=== PATIENT | female | born 1990 | race Caucasian/White ===

== ENCOUNTER 2018-12-12 13:23 | Emergency (ER) | payer SELFPAY ==
[2018-12-12] MEDS ORDERED: clonazePAM 0.5 MG TABLET PO ONE (13:41)
--- NOTE | 2018-12-12 13:44 | ED Physician Documentation ---
General Adult - HISTORIAN Historian: patient - HPI Stated Complaint: agitation Chief Complaint: General Adult Additional Information: Patient presents to ED with complaints of agitation and fleeting thoughts since he was started on amitriptyline two days ago. He denies any suicidal or homicidal thoughts. He was started on amitriptyline as a sleep aid. Onset: days ago (2) Timing: still present Severity: moderate - ROS CONST: no problems EYES/ENT: none CVS/RESP: none GI/: none MS/SKIN/LYMPH: none NEURO/PSYCH: denies: headache, dizziness - PAST HX Past History: other (anxiety) Other History: none Surgeries/Procedures: none Allergies/Adverse Reactions: Allergies Allergy/AdvReac Type Severity Reaction Status Date / Time amitriptyline [From Elavil] Allergy Verified 12/12/18 13:40 suprex AdvReac Rash Uncoded 12/12/18 13:40 Home Medications: Ambulatory Orders Medication Instructions Recorded NK 12/12/18 - SOCIAL HX Smoking History: non-smoker Alcohol Use: none Drug Use: none - FAMILY HX Family History: No - REVIEWED ASSESSMENTS Nursing Assessment Reviewed: Yes Vitals Reviewed: Yes ED Results Lab/Radiology - Orders Orders: ED Orders Category Date Time Status clonazePAM [KlonoPIN] Med 12/12/18 13:41 Once 1 mg PO NOW ONE General Adult Physical Exam - PHYSICAL EXAM GENERAL APPEARANCE: no distress EENT: CARMELA NECK: supple RESPIRATORY: no resp distress CVS: reg rate & rhythm, heart sounds normal ABDOMEN: soft, normal bowel sounds BACK: normal inspection, no CVA tenderness SKIN: warm/dry, normal color EXTREMITIES: non-tender NEURO: oriented X3, mood/affect nml Discharge Clincal Impression: Agitation Medication adverse effect Qualifiers: Encounter type: initial encounter Qualified Code(s): T50.905A - Adverse effect of unspecified drugs, medicaments and biological substances, initial encounter Referrals: Primary Doctor,No [Primary Care Provider] - 2 Days Additional Instructions: 1. STOP Amitriptyline. List this drug as an allergy 2. Take Clonazepam every 8 hours as needed for agitation/anxiety 3. Follow up with PCP as soon as possible. Discuss different medication for insomnia 4. Return to the ER for new or worsening symptoms Condition: Stable Disposition: 01 HOME, SELF-CARE Decision to Admit: NO Date of Decison to Admit: 12/12/18 Decision Time: 14:40
[2018-12-12 14:54] VITALS: BP 140/82
== END 2018-12-12 14:50 | disposition home or self-care (01) ==
LOC: ED 13:23
DX: R45.1 Restlessness and agitation (principal); T43.015A Adverse effect of tricyclic antidepressants, initial encounter
CPT/HCPCS: 99283

== ENCOUNTER 2018-12-18 16:50 | Emergency (ER) | payer SELFPAY ==
--- NOTE | 2018-12-18 17:10 | ED Physician Documentation ---
General Adult - HISTORIAN Historian: patient - HPI Stated Complaint: agitation Chief Complaint: General Adult Additional Information: Patient presents to ED with agitation, stating he just wants to smash things. Patient has been seen here prior for similar issues secondary to amitriptyline. At that time he was given clonazepam to counter act the affects of amitriptyline. At his follow up appointment at [facility] he was given a prescription for clonazepam but now he is out and feeling agitated again. He states he is taking more Clonazepam than prescribed to prevent himself from doing street drugs. Onset: hours (12) Timing: still present Severity: moderate - ROS CONST: no problems EYES/ENT: none CVS/RESP: none GI/: none MS/SKIN/LYMPH: none NEURO/PSYCH: denies: headache - PAST HX Past History: other (anxiety) Other History: none Surgeries/Procedures: none Allergies/Adverse Reactions: Allergies Allergy/AdvReac Type Severity Reaction Status Date / Time amitriptyline [From Elavil] Allergy Verified 12/18/18 17:23 suprex AdvReac Rash Uncoded 12/18/18 17:23 Home Medications: Ambulatory Orders Medication Instructions Recorded Olanzapine [Zyprexa] 5 mg PO Q12 PRN #40 tablet 12/18/18 - SOCIAL HX Smoking History: non-smoker, greater than 1 pack/day Alcohol Use: none Drug Use: methamphetamines - FAMILY HX Family History: No - VITAL SIGNS Vital Signs: Vital Signs Temp Pulse Resp BP Pulse Ox 140/82 12/12/18 14:53 - REVIEWED ASSESSMENTS Nursing Assessment Reviewed: Yes Vitals Reviewed: Yes General Adult Physical Exam - PHYSICAL EXAM GENERAL APPEARANCE: anxious EENT: CARMELA NECK: supple RESPIRATORY: no resp distress, chest non-tender, breath sounds normal CVS: reg rate & rhythm, heart sounds normal ABDOMEN: soft, normal bowel sounds BACK: normal inspection SKIN: warm/dry, normal color EXTREMITIES: non-tender NEURO: oriented X3, CN's nml as tested, mood/affect nml Discharge Clincal Impression: Agitation Prescriptions: Olanzapine [Zyprexa] 5 mg PO Q12 PRN #40 tablet PRN Reason: anxiety/agitation Referrals: Primary Doctor,No [Primary Care Provider] - 2 Days Additional Instructions: 1. Take Zyprexa every 12 hours as needed for anxiety/agitation. Do not take more than 2 doses in 24 hours. Rx sent to [facility] 2. Follow up with PCP within 1 week 3. Return to ER for new or worsening symptoms Condition: Stable Disposition: 01 HOME, SELF-CARE Decision to Admit: NO Date of Decison to Admit: 12/18/18 Decision Time: 18:08
[2018-12-18 18:28] VITALS: BP 138/75
== END 2018-12-18 18:15 | disposition home or self-care (01) ==
LOC: ED 16:50
DX: R45.1 Restlessness and agitation (principal)
CPT/HCPCS: 99283; 99284